=== PATIENT | male | born 1975 | race Caucasian/White ===

== ENCOUNTER → 2025-04-13 | Outpatient (CLI) | payer OTHER ==
[~2025-04-13] MED LIST: ASPI-1450 PO; ATOR40TA28 PO; BUPR1FIL3 SL; DOCU-385 PO; FLUO-418 PO; FLUT1BLS19 IH; ISOS30TA92 PO; LEVA15HF3 IH; METH454P4 PO; METO25 PO; MIRT-89 PO; NITR0.4T52 SL; PRAS10TA21 PO
== END | disposition home or self-care (01) ==
LOC: TELEHEALTH 13:18
PROVIDERS: ATTEND Internal Medicine
DX: I25.119 Atherosclerotic heart disease of native coronary artery with unspecified angina pectoris (principal); F41.0 Panic disorder [episodic paroxysmal anxiety]; I10 Essential (primary) hypertension; J44.9 Chronic obstructive pulmonary disease, unspecified; Z79.02 Long term (current) use of antithrombotics/antiplatelets; Z79.51 Long term (current) use of inhaled steroids; Z79.82 Long term (current) use of aspirin; Z79.899 Other long term (current) drug therapy; Z87.891 Personal history of nicotine dependence; Z88.0 Allergy status to penicillin; Z95.5 Presence of coronary angioplasty implant and graft
CPT/HCPCS: Q3014